=== PATIENT | male | born 1985 | race Caucasian/White ===

== ENCOUNTER 2021-09-02 14:21 | Observation (INO) ==
[2021-09-02] MEDS ORDERED: Lidocaine HCL 4 ML Topical Solution (Laryng-O-Jet Kit Sterile Pak) TP ONE (16:43)
[2021-09-02] MEDS ORDERED: *HR* Rocuronium Bromide 50 MG/5 ML VIAL ONE (16:47)
[2021-09-02] MEDS ORDERED: Lidocaine -MPF 2% 5 ML VIAL ONE (16:47)
[2021-09-02] MEDS ORDERED: *HR* FentaNYL (PF) 100 MCG/2 ML VIAL ONE ×2 (16:47→18:31)
[2021-09-02] MEDS ORDERED: *HR* Midazolam HCl 2 MG/2 ML VIAL ONE (16:47)
[2021-09-02] MEDS ORDERED: *HR* Propofol 200 MG/20 ML VIAL IVP ONE (16:47)
[2021-09-02] MEDS ORDERED: 0.9 % Sodium Chloride 1,000 ML IVC SCH (17:00)
[2021-09-02] MEDS ORDERED: *HR* HYDROmorphone PF 0.5 MG/0.5 ML SYRINGE IVP PRN (17:10)
[2021-09-02] MEDS ORDERED: Ondansetron 4 MG/2 ML VIAL IVP PRN ×2 (17:10→19:52)
[2021-09-02] MEDS ORDERED: Ringers Solution, Lactated 1,000 ML IVC SCH (17:15)
[2021-09-02] MEDS ORDERED: CefOXitin 1,000 MG VIAL ONE (17:17)
[2021-09-02] MEDS ORDERED: Ondansetron 4 MG/2 ML VIAL ONE (17:44)
[2021-09-02] MEDS ORDERED: CefOXitin 2,000 MG VIAL ONE (17:51)
[2021-09-02] MEDS ORDERED: Sugammadex Sodium 200 MG/2 ML VIAL IV ONE (18:04)
[2021-09-02] MEDS ORDERED: *HR* HYDROMORPHONE 2 MG/ML VIAL ONE (18:08)
[2021-09-02] MEDS ORDERED: Acetaminophen IV 1,000 MG/100 ML BAG IVPB ONE (18:55)
[2021-09-02] MEDS ORDERED: *HR* Metoprolol 5 MG/5 ML VIAL IVP PRN (19:52)
[2021-09-02] MEDS: clonazePAM 1 MG TABLET PO SCH (20:14)
[2021-09-02] MEDS: 0.9 % Sodium Chloride 1,000 ML IVC SCH (20:14)
[2021-09-02] MEDS: *HR* OxyCODONE/APAP 5/325 TABLET PO PRN (20:14)
[2021-09-03] MEDS: cefOXitin 2,000 MG in Water for inj. (sterile) 10 ML IVP SCH ×2 (01:24→08:06)
[2021-09-03 03:26] VITALS: O2SAT 95
[2021-09-03] MEDS: *HR* OxyCODONE/APAP 5/325 TABLET PO PRN ×2 (04:11→10:11)
[2021-09-03 07:11] VITALS: BP 136/75; PULSE 92; TEMP 98
[2021-09-03] MEDS: clonazePAM 1 MG TABLET PO SCH (08:05)
[2021-09-03] MEDS: 0.9 % Sodium Chloride 1,000 ML IVC SCH (08:11)
[2021-09-03] MEDS ORDERED: Ibuprofen 400 MG TABLET PO ONE (09:00)
[2021-09-03] MEDS ORDERED: lisinopriL 10 MG TABLET PO SCH (09:00)
[2021-09-03] MEDS ORDERED: Patient Taking Own Medication 1 EACH PO SCH (09:00)
== END 2021-09-03 10:48 | disposition home or self-care (01) ==
LOC: 3BNU
PROVIDERS: ADMIT Surgery; ATTEND Surgery